=== PATIENT | female | born 1990 | race Caucasian/White ===

== ENCOUNTER 2016-09-07 04:49 | Emergency (ER) | payer OTHER ==
--- NOTE | 2016-09-07 05:05 | PDOC ---
History of Present Illness - General Chief Complaint: Allergic Reaction Stated Complaint: ALLERGIC REACTION Time Seen by Provider: 09/07/16 04:58 History Source: Patient Exam Limitations: No Limitations - History of Present Illness Initial Comments: 09/07/16 05:08 This is a 26-year-old female comes in complaining of an ALLERGIC reaction. Patient has number of ALLERGIES to antibiotics and was recently started on Bactrim and now has developed a rash and itching. Patient said it started 2 days ago she is been taking Benadryl but is now getting worse. Patient has stopped taking the Bactrim. She denies any shortness of breath sensation her throat is closing. PAST MEDICAL HISTORY: no significant history PAST SURGICAL HISTORY: no significant history FAMILY HISTORY: no pertinant history SOCIAL HISTORY: Pt lives with family and is employed. MEDICATIONS: reviewed ALLERGIES: As per nursing notes Review of Systems General: No fevers or chills, no weakness, no weight loss HEENT: No change in vision. No sore throat,. No ear pain CardioVascular: No chest pain or shortness of breath Respiratory:No cough, or wheezing. Gastrointestinal: no nausea, vomitting, diarrhea or constipation, No rectal bleeding Genitourinary: No dysuria, hematuria, or frequency Musculoskeletal: No joint or muscle pain or swelling Neurologic: No headache, vertigo, dizziness or loss of consciousness Psychiatric: nor depression Skin: No rashes or easy bruising Endocrine: no increased thirst or abnormal weight change Allergic: no skin or latex allergy All other systems reviewed and normal Exam: General: Well-nourished well-developed individual, no acute distress HEENT: Throat: Normal, tonsils normal, no erythema or exudate Neck: Supple, no meningeal signs, no lymphadenopathy Eyes::Pupils equal reactive and round, extraocular motion intact Chest: Nontender to palpation Cardiac: S1-S2 normal, regular rate and rhythm, no murmurs rubs or gallops Respiratory: Lungs clear to auscultation bilateral Extremities: Warm, dry, no cyanosis, clubbing, or edema Skin: Patient has diffuse hives of her extremities and trunk neck and face. Neuro: Alert and oriented x3, nonfocal exam, grossly intact, normal gait Psych: Normal mood and affect Reevaluation approximately one hour post medications. Rash is slightly improved but not resolved. Patient feels better and wants to go home. Patient discharged home given prescriptions for Medrol Dosepak and told to continue the Benadryl as needed. Past History - Past Medical History Allergies/Adverse Reactions: Allergies Allergy/AdvReac Type Severity Reaction Status Date / Time azithromycin Allergy High Verified 09/07/16 04:57 [From Zithromax Z-Tom] fever, vomiting cefdinir Allergy Verified 09/07/16 04:57 celery Allergy Verified 09/07/16 04:57 sulfamethoxazole Allergy Verified 09/07/16 04:58 [From Bactrim] trimethoprim [From Bactrim] Allergy Verified 09/07/16 04:58 Home Medications: Ambulatory Orders Methylprednisolone [Medrol Dose Tom] 4 mg PO ASDIR #21 tablet 09/07/16 Sulfamethoxazole/Trimethoprim [Bactrim Ds -] 1 tab PO BID 09/07/16 - Psycho/Social/Smoking Cessation Hx Anxiety: No Suicidal Ideation: No Smoking History: Never smoked Have you smoked in the past 12 months: No Number of Cigarettes Smoked Daily: 0 Hx Alcohol Use: No Drug/Substance Use Hx: No Substance Use Type: None *DC/Admit/Observation/Transfer Diagnosis at time of Disposition: Allergic reaction to drug Qualifiers: Encounter type: initial encounter Qualified Code(s): T78.40XA - Allergy, unspecified, initial encounter - Discharge Dispostion Disposition: HOME Condition at time of disposition: Stable Admit: No - Prescriptions Prescriptions: Methylprednisolone [Medrol Dose Tom] 4 mg PO ASDIR #21 tablet - Patient Instructions Printed Discharge Instructions: DI for Adverse Drug Reaction -- Allergic Additional Instructions: ALLERGIC reaction take Benadryl one tablet every 4 hours as needed. In addition to that take the Medrol Dosepak and taper as per the pack Return to the emergency department immediately with ANY new, persistent or worsening symptoms. Continue any medications as previously prescribed by your physician. You should follow up with your primary doctor as soon as possible regarding today's emergency department visit. . Please make sure your doctor reviews the results of your emergency evaluation. Thank you for coming to the Emergency Department today for your care. It was a pleasure to see you today. Please note that your evaluation is INCOMPLETE until you follow-up with your doctor.
[2016-09-07] MEDS ORDERED: predniSONE 20 MG TABLET (UD) PO ONE (05:09)
[2016-09-07] MEDS ORDERED: diphenhydrAMINE HCL 25 MG CAPSULE (FP) PO ONE (05:14)
[2016-09-07 05:15] VITALS: BP 108/63; PULSE 114; TEMP 97.9; BMI 22.6
[2016-09-07] MEDS ORDERED: predniSONE 20 MG TABLET (UD) ONE (05:16)
[2016-09-07] MEDS ORDERED: diphenhydrAMINE HCL 50 MG CAPSULE ONE (05:19)
== END 2016-09-07 06:13 | disposition home or self-care (01) ==
LOC: FER 04:49
DX: T78.40XA Allergy, unspecified, initial encounter (principal)
CPT/HCPCS: 99281-25

== ENCOUNTER 2018-09-27 19:03 | Emergency (ER) | payer OTHER ==
[2018-09-27 19:13] VITALS: BP 120/72; PULSE 84; TEMP 97.9; BMI 22.6
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
== END 2018-09-27 19:51 | disposition home or self-care (01) ==
LOC: FER 19:03
DX: M54.2 Cervicalgia (principal); Z88.1 Allergy status to other antibiotic agents; Z88.2 Allergy status to sulfonamides
CPT/HCPCS: 99281-25